=== PATIENT | male | born 2000 | race African-American/Black ===

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

== ENCOUNTER 2019-02-09 05:45 | Emergency (ER) | payer OTHER ==
[2019-02-09 06:15] VITALS: BP 127/58; PULSE 51; TEMP 97.9; BMI 23.0
--- NOTE | 2019-02-09 07:31 | PDOC ---
History of Present Illness - General Chief Complaint: Injury Stated Complaint: L HAND INJURY Time Seen by Provider: 02/09/19 07:10 History Source: Patient Exam Limitations: No Limitations - History of Present Illness Initial Comments: 18 yo m w a no sig pmh presents to the ER with a left hand injury after he closed the car door on his thumb last night. The patient states that last night around 7 pm the car door got closed on his left thumb and he has been in pain ever since. He took 600 mg of motrin and applied ice to his thumb last night with partial relief. He came into the ER today to get an X-ray to make sure nothing is broken. The patient states his hand is not in pain at rest and his sensation is normal. PCP: Vladislav Downing PSH: None reported Social Hx: Smokes marijuana, drinks recreationally, denies cigarette or illicit drug usage Allergies: NKA, NKDA Past History - Past Medical History Allergies/Adverse Reactions: Allergies Allergy/AdvReac Type Severity Reaction Status Date / Time No Known Allergies Allergy Verified 02/09/19 06:49 Home Medications: Ambulatory Orders NK [No Known Home Medication] 10/06/15 - Immunization History Immunization Up to Date: Yes - Suicide/Smoking/Psychosocial Hx Smoking History: Never smoked Have you smoked in the past 12 months: No Number of Cigarettes Smoked Daily: 0 Cigars Per Day: 1 Information on smoking cessation initiated: No 'Breaking Loose' booklet given: 08/23/16 Hx Alcohol Use: No Drug/Substance Use Hx: No Substance Use Type: Marijuana Review of Systems - Review of Systems Able to Perform ROS?: Yes Comments:: CONSTITUTIONAL: Absent: fever, no chills, no fatigue EYES: Absent: visual changes ENT: Absent: ear pain, no sore throat CARDIOVASCULAR: Absent: chest pain, no palpitations RESPIRATORY: Absent: cough, no SOB GI: Absent: abdominal pain, no nausea, no vomiting, no constipation, no diarrhea GENITOURINARY: Absent: dysuria, no frequency, no hematuria MUSKULOSKELETAL: Present: Arthralgia Absent: back pain, no myalgia SKIN: Absent: rash NEURO: Absent: headache *Physical Exam - Vital Signs Last Vital Signs Temp Pulse Resp BP Pulse Ox 97.9 F 51 L 16 127/58 L 100 02/09/19 06:05 02/09/19 06:05 02/09/19 06:05 02/09/19 06:05 02/09/19 06:05 - Physical Exam Comments: LEFT HAND: The 1st digit has a small subungal hematoma covering around 20% of the nail. 2+ ulnar and radial pulses. Full palmar and dorsal sensation in every digit. There is limited ROM at the 1st DIP joint and mildly reduced ROM at the 1st PIP joint. No snuff box TTP. No erythema or swelling of the hand. GENERAL: Well-appearing, well-nourished. No apparent distress. HEENT: Normocephalic, atraumatic. PERRL, EOM intact. CARDIOVASCULAR: Normal S1, S2. Regular rate and rhythm. PULMONARY: No evidence of respiratory distress. Lungs clear to auscultation bilaterally. No wheezing, rales or rhonchi. ABDOMEN: Soft, non-distended, non-tender. EXTREMITIES: Normal ROM in all four extremities. No gross deformities. SKIN: Warm, dry. No rash NEUROLOGICAL: No focal neurological deficits. Procedures - Splinting Splint Location: Left: Finger Pre-Proc Neuro Vasc Exam: normal Pre-Made Type: metal Splint Type: Yes: Thumb Spica Post-Proc Neuro Vasc Exam: normal Librado Bandage: no Sling: No Complications: No Post splint xray: No Good repositioning: Yes - Nail Trephination Nail Trephination Location: left thumb Method of Drainage: nail cauterized Sterile Dressing Applied: Yes Finger Splint: Yes ED Treatment Course - RADIOLOGY Radiograph Interpretation: Hand XR: Left hand: Some injury. Pain. 3 views of the left hand have been submitted. There is no sign of fracture or subluxation and no sign of blastic or lytic changes. Swelling, foreign body or soft tissue air is not seen. If symptoms persist, further imaging and orthopedic consultation may be of help. Impression no acute left hand pathology. Finger XR: Left thumb: Injury 3 views of the left thumb have been submitted. There is no sign of fracture or subluxation and no sign of blastic or lytic changes. Swelling, foreign body or soft tissue air is not seen. If symptoms persist, further imaging and orthopedic consultation may be of help. Medical Decision Making - Medical Decision Making 18 yo m w a no sig pmh presents to the ER with a left hand injury after he closed the car door on his thumb last night. The patient states that last night around 7 pm the car door got closed on his left thumb and he has been in pain ever since. He took 600 mg of motrin and applied ice to his thumb last night with partial relief. He came into the ER today to get an X-ray to make sure nothing is broken. The patient states his hand is not in pain at rest and his sensation is normal. Vital Signs Temp Pulse Resp BP Pulse Ox 97.9 F 51 L 16 127/58 L 100 02/09/19 06:05 02/09/19 06:05 02/09/19 06:05 02/09/19 06:05 02/09/19 06:05 DDx IBNLT: Thumb injury - bone fx, sprain, dislocation, wrist injury Plan: X-ray, ice, analgesia, Nail trephination with electrocautery, thumb spica splint, ortho FU. Hand/Finger x-rays: No acute fx or subluxation - Nail cauterized with electrocauterizer - Thumb Spica splint applied Will DC Patient with Ortho Fu and return precautions. *DC/Admit/Observation/Transfer Diagnosis at time of Disposition: Thumb pain - Discharge Dispostion Disposition: HOME Condition at time of disposition: Improved Decision to Admit order: No - Referrals Referrals: Vladislav Downing MD [Primary Care Provider] - Arben Delgado DO [Staff Physician] - Lewis Hernandez DO [Staff Physician] - - Patient Instructions Printed Discharge Instructions: Finger Sprain Additional Instructions: You came into the ER after injuring your thumb. We did an x-ray which showed you have no broken bones. We cauterized your nail to drain the blood underneath your nail. We also put your finger in a splint. We are giving you the numbers for two orthopedists - Tanya Delgado and Mary - please make sure to call them up and schedule an appointment for a follow up. Come back to the ER immediately if your pain worsens, you cant feel your thumb, you get a fever, or have any other new or worsening concerns. Thank you for coming to the [facility] ER. We hope you feel better soon! Print Language: MOROCCAN - Post Discharge Activity
[2019-02-09] MEDS ORDERED: IBUPROFEN 400 MG TABLET (FP) PO ONE ×2 (07:37→08:16)
--- NOTE | 2019-02-09 08:25 | PDOC ---
Documentation entered by Shaka Barrientos SCRIBE, acting as scribe for Julien Alcaraz MD. Julien Alcaraz MD: This documentation has been prepared by the Floyd preston Joel, SCRIBE, under my direction and personally reviewed by me in its entirety. I confirm that the documentation accurately reflects all work, treatment, procedures, and medical decision making performed by me. Attending Attestation - Resident Resident Name: Lee Hassan - ED Attending Attestation I have performed the following: I have examined & evaluated the patient, The case was reviewed & discussed with the resident, I agree w/resident's findings & plan, Exceptions are as noted - HPI HPI: 02/09/19 07:47 The patient is a 18 year old male with no significant PMH who presents to the emergency department with left thumb pain beginning about 12 hours ago. The patient reports accidentally closing the car door on his left thumb at about 7pm last night. He reports taking Motrin and applying ice to some relief. Denies any other injuries. Allergies: NKA Social history: Marijuana use. Social alcohol use. No reported cigarette use. PCP: Dr. Vladislav Downing - Physicial Exam PE: 02/09/19 08:26 GENERAL: Awake, alert, and fully oriented, in no acute distress. HEAD: No signs of trauma EYES: PERRLA, EOMI, sclera anicteric, conjunctiva clear ENT: Auricles normal inspection, hearing grossly normal, nares patent, oropharynx clear without exudates. Moist mucosa NECK: Nontender, no stepoffs, Normal ROM, supple, no lymphadenopathy, JVD, or masses LUNGS: Breath sounds equal, clear to auscultation bilaterally. No wheezes, and no crackles HEART: Regular rate and rhythm, normal S1 and S2, no murmurs, rubs or gallops ABDOMEN: Soft, nontender, normoactive bowel sounds. No guarding, no rebound. No masses EXTREMITIES: + L thumb with subungual hematoma, no bony deformity, full ROM NEUROLOGICAL: Cranial nerves II through XII intact. 5/5 strength and sensation in all extremities, Normal speech, normal gait, normal cerebellar function SKIN: Warm, Dry, normal turgor, no rashes or lesions noted. - Medical Decision Making 02/09/19 08:27 18 M with L thumb injury after slamming it in a car door. - XR negative for fx/dislocation Subungual hematoma trephinated using electric cautery Pt placed in thumb splint, given ortho f/u Pt is well appearing, with normal vitals. Clinically stable for DC at this time. I discussed the physical exam findings, ancillary test results and final diagnoses with the patient. I answered all of the patient's questions. The patient was satisfied with the care received and felt comfortable with the discharge plan and treatment plan. The patient agrees to follow up with the primary care physician within 24-72 hours.
== END 2019-02-09 08:26 | disposition home or self-care (01) ==
LOC: JER 05:45
PROC: 2W3HX1Z Immobilization of Left Thumb using Splint (ICD-10-PCS; principal; 2019-02-09)
DX: M79.645 Pain in left finger(s) (principal); V48.4XXA Person boarding or alighting a car injured in noncollision transport accident, initial encounter; Y92.488 Other paved roadways as the place of occurrence of the external cause; Y93.89 Activity, other specified; Y99.8 Other external cause status
CPT/HCPCS: 29130; 73130-TC-LT-FY; 73140-TC-LT-FY; 99281-25

== ENCOUNTER 2019-02-18 00:19 | Emergency (ER) | payer OTHER ==
[2019-02-18 00:48] VITALS: BP 108/62; PULSE 70; TEMP 98.6; BMI 21.4
[2019-02-18 01:22] LABS: URINE APPEARANCE CLEAR; URINE BILIRUBIN NEGATIVE (NEGATIVE); URINE COLOR YELLOW; URINE GLUCOSE (UA) NEGATIVE (NEGATIVE); URINE KETONE NEGATIVE (NEGATIVE); URINE LEUK ESTERASE NEGATIVE (NEGATIVE); URINE NITRITE NEGATIVE (NEGATIVE); URINE PROTEIN NEGATIVE (NEGATIVE)
--- NOTE | 2019-02-18 02:10 | PDOC ---
History of Present Illness - General Chief Complaint: Urinary Problem Stated Complaint: CHECK UP Time Seen by Provider: 02/18/19 01:45 History Source: Patient Exam Limitations: No Limitations - History of Present Illness Initial Comments: 02/18/19 01:58 18yo M with no significant PMH presenting to ED with complaints of urinary frequency for the past 2 days. Denies discharge, testicular pain, erythema, swelling, dysuria, hematuria, flank pain, fevers, chills, history of stds. He has a new partner and is unsure if they have a history of stds. PMD: jesse Downing PMH: none PSH: none Allergies: nkda Social: marijuana use Past History - Past Medical History Allergies/Adverse Reactions: Allergies Allergy/AdvReac Type Severity Reaction Status Date / Time No Known Allergies Allergy Verified 02/18/19 00:41 Home Medications: Ambulatory Orders NK [No Known Home Medication] 10/06/15 COPD: No - Immunization History Immunization Up to Date: Yes - Suicide/Smoking/Psychosocial Hx Smoking History: Never smoked Have you smoked in the past 12 months: No Number of Cigarettes Smoked Daily: 0 Cigars Per Day: 1 Information on smoking cessation initiated: No 'Breaking Loose' booklet given: 08/23/16 Hx Alcohol Use: No Drug/Substance Use Hx: Yes (marijuana) Substance Use Type: Marijuana Review of Systems - Review of Systems Constitutional: No: Symptoms Reported HEENTM: No: Symptoms Reported Respiratory: No: Symptoms reported Cardiac (ROS): No: Symptoms Reported ABD/GI: No: Symptoms Reported : Yes: See HPI, Frequency. No: Burning, Dysuria, Flank Pain, Hematuria, Incontinence, Pain, Testicular Swelling, Testicular Pain Musculoskeletal: No: Symptoms Reported Integumentary: No: Symptoms Reported Neurological: No: Symptoms reported *Physical Exam - Vital Signs Last Vital Signs Temp Pulse Resp BP Pulse Ox 98.6 F 70 18 108/62 99 02/18/19 00:41 02/18/19 00:41 02/18/19 00:41 02/18/19 00:41 02/18/19 00:41 - Physical Exam General Appearance: Yes: Appropriately Dressed, Thin. No: Apparent Distress HEENT: positive: EOMI, CIRO Respiratory/Chest: positive: Lungs Clear Cardiovascular: positive: Regular Rhythm, Regular Rate Gastrointestinal/Abdominal: positive: Normal Bowel Sounds, Soft Male Genitalia: positive: normal genitalia. negative: discharge, testicular tenderness, testicular mass, epididymus tender Musculoskeletal: negative: CVA Tenderness Integumentary: positive: Normal Color, Dry, Warm Neurologic: positive: marketing specialist II-XII NML intact, Fully Oriented, Alert, Normal Mood/ Affect, Normal Response, Motor Strength 5/5 ED Treatment Course - ADDITIONAL ORDERS Additional order review: Laboratory Results 02/18/19 00:45 Urine Color Yellow Urine Appearance Clear Urine pH 6.0 Ur Specific [place] 1.031 Urine Protein Negative Urine Glucose (UA) Negative Urine Ketones Negative Urine Blood Negative Urine Nitrite Negative Urine Bilirubin Negative Urine Urobilinogen 1.0 Ur Leukocyte Esterase Negative Medical Decision Making - Medical Decision Making 02/18/19 02:12 18yo M with no significant PMH presenting to ED with complaints of urinary frequency for the past 2 days. Denies discharge, testicular pain, erythema, swelling, dysuria, hematuria, flank pain, fevers, chills, history of stds. He has a new partner and is unsure if they have a history of stds. Vitals: wnl PE; ddx includes but not limited to uti, pyelonephritis, gc, dm, electrolyte/ metabolic abnormality UA negative for infection Will send GC BGM. If normal, pt can be dc home BGM 80. Pt safe for dc home. Will defer covering for GC, pt only has frequency. Pt will get call back with positive results. Pt otherwise stable, safe for dc home. given return precautions. *DC/Admit/Observation/Transfer Diagnosis at time of Disposition: Urinary frequency - Discharge Dispostion Disposition: HOME Condition at time of disposition: Good Decision to Admit order: No - Referrals Referrals: Vladislav Downing MD [Primary Care Provider] - - Patient Instructions Additional Instructions: You were seen in the emergency room today for urinary frequency. You do not have a urinary tract infection. The GC test will come back in a few days. You will get a call if the results are positive. Keep yourself well hydrated. Please make an appointment with your primary care doctor in the next few days to go over this current ED visit. Come back to the emergency room if symptoms worsen, you have blood in the urine , you have discharge, you develop testicular pain or if any new concerning symptom develops. Thank you - Post Discharge Activity
--- NOTE | 2019-02-18 02:21 | PDOC ---
Attending Attestation - Resident Resident Name: Ruchi Nj - ED Attending Attestation I have performed the following: I have examined & evaluated the patient, The case was reviewed & discussed with the resident, I agree w/resident's findings & plan, Exceptions are as noted - HPI HPI: 02/18/19 02:54 18M denies PMH here with urinary frequency x2 days. No other complaints. Endorses new partner - Medical Decision Making 02/18/19 04:04 Dysuria in context of new sexual partner eval uti, sti f/u ua send cx
== END 2019-02-18 02:42 | disposition home or self-care (01) ==
LOC: JER 00:19
DX: R35.0 Frequency of micturition (principal)
CPT/HCPCS: 36415; 81003; 82962; 87086; 87491; 87591; 99281-25

== ENCOUNTER 2020-04-01 11:24 | Emergency (ER) | payer OTHER ==
[2020-04-01 11:29] VITALS: BP 139/67; PULSE 99; TEMP 98.7; BMI 20.7
[2020-04-01] MEDS ORDERED: DEXAMETHASONE LIQUID 0.5 MG/5 ML PO ONE (11:56)
[2020-04-01] MEDS ORDERED: DEXAMETHASONE SOD PHOSPHATE 10 MG/1 ML VIAL ONE (12:08)
--- NOTE | 2020-04-01 12:14 | PDOC ---
History of Present Illness - General Chief Complaint: Sore Throat Stated Complaint: SORE THROAT Time Seen by Provider: 04/01/20 11:33 History Source: Patient Exam Limitations: No Limitations - History of Present Illness Initial Comments: 04/01/20 12:25 20-year-old male presents the ED with difficulty swallowing, chills, sore throat, and a bump to the left side of his neck. Patient states symptoms began last night but worsened in severity today. Patient states was at a few parties earlier this week and unsure if he contracted something but denies headache, cough, difficulty breathing, smoking history but does smoke marijuana. Patient states decreased oral intake but continues with fluids. Patient mentioned in triage low back pain but states he has had for over a year and is not concerned with being evaluated for this at this time. Timing/Duration: reports: yesterday Severity: reports: moderate Possible Cause: Yes: no prior episodes Associated Symptoms: reports: fever/chills, sore throat Past History - Travel History Traveled outside of the country in the last 30 days: No Close contact w/someone who was outside of country & ill: No - Medical History Allergies/Adverse Reactions: Allergies Allergy/AdvReac Type Severity Reaction Status Date / Time No Known Allergies Allergy Verified 04/01/20 11:29 Home Medications: Ambulatory Orders Amoxicillin - [Amoxicillin 500mg Capsule -] 500 mg PO BID #20 capsule 04/01/20 COPD: No - Immunization History Immunization Up to Date: Yes - Psycho-Social/Smoking History Patient Lives Alone: No Lives with/in: parents Smoking History: Current every day smoker Have you smoked in the past 12 months: No Number of Cigarettes Smoked Daily: 0 Cigars Per Day: 1 Information on smoking cessation initiated: No 'Breaking Loose' booklet given: 08/23/16 - Substance Abuse Hx (Audit-C & DAST Scrn) How often the patient has a drink containing alcohol: Never Score: In Men: 4 or > Positive; In Women: 3 or > Positive: 0 Screen Result (Pos requires Nsg. Audit-10AR): Negative Review of Systems - Review of Systems Able to Perform ROS?: Yes Constitutional: Yes: Chills HEENTM: Yes: Throat Pain, Difficulty Swallowing Respiratory: No: Symptoms reported Cardiac (ROS): No: Symptoms Reported ABD/GI: No: Symptoms Reported : No: Symptoms Reported Musculoskeletal: No: Symptoms Reported Integumentary: Yes: Lumps Neurological: No: Symptoms reported Endocrine: No: Symptoms Reported *Physical Exam - Vital Signs Last Vital Signs Temp Pulse Resp BP Pulse Ox 98.7 F 99 H 18 139/67 99 04/01/20 11:26 04/01/20 11:26 04/01/20 11:26 04/01/20 11:04/01/20 11:26 - Physical Exam General Appearance: Yes: Nourished, Appropriately Dressed. No: Apparent D istress HEENT: positive: Tonsillar Exudate (4+ tonsils bilateral. Uvula midline ), Tonsillar Erythema. negative: Pale Conjunctivae Neck: positive: Supple, Lymphadenopathy (L) (Upper cervical) Respiratory/Chest: positive: Lungs Clear, Normal Breath Sounds. negative: Respiratory Distress, Accessory Muscle Use Gastrointestinal/Abdominal: positive: Soft. negative: Tenderness Extremity: positive: Normal Inspection Integumentary: positive: Normal Color, Warm, Moist Neurologic: positive: Motor Strength 5/5 (ambulatory) Medical Decision Making - Medical Decision Making 04/01/20 12:31 .Chief complaint: Patient with sore throat and bump to the left side of her neck. Patient states chills . Patient denies sick contacts but states went to a few parties this week Exam: Patient with exudative erythematous 4+ tonsils bilaterally voice slightly muffled noted prominent upper left cervical adenopathy Plan: Decadron, Motrin and rapid strep ordered Discharge - Discharge Information Problems reviewed: Yes Clinical Impression/Diagnosis: Tonsillitis with exudate Condition: Good Disposition: HOME - Additional Discharge Information Prescriptions: Amoxicillin - [Amoxicillin 500mg Capsule -] 500 mg PO BID #20 capsule - Follow up/Referral - Patient Discharge Instructions Patient Printed Discharge Instructions: DI for Pharyngitis/Tonsillopharyngitis -- Adult Additional Instructions: take antibiotics starting today and finish in entirety. Drink plenty of fluids eat soft foods may take Motrin 600 mg every 8 hours for discomfort. If your symptoms worsen please return to the ED immediately otherwise follow-up with your primary care physician. - Post Discharge Activity
[2020-04-01] MEDS ORDERED: IBUPROFEN 100 MG/5 ML UNIT DOSE CUPS PO ONE (12:24)
[2020-04-01] MEDS ORDERED: IBUPROFEN 100 MG/5 ML UNIT DOSE CUPS ONE (12:25)
== END 2020-04-01 13:09 | disposition home or self-care (01) ==
LOC: JERFT 11:24
DX: J03.90 Acute tonsillitis, unspecified (principal)
CPT/HCPCS: 87070; 87077; 87880; 99283-25

== ENCOUNTER 2020-07-27 06:50 | Emergency (ER) | payer OTHER ==
[2020-07-27 07:20] VITALS: TEMP 98.1; BMI 23.6
[2020-07-27] MEDS ORDERED: AZITHROMYCIN 500 MG TABLET PO ONE (07:47)
[2020-07-27] MEDS ORDERED: cefTRIAXone SODIUM 1 GM VIAL ONE (08:03)
[2020-07-27] MEDS ORDERED: AZITHROMYCIN 250 MG TABLET ONE (08:03)
[2020-07-27] MEDS ORDERED: IBUPROFEN 600 MG TABLET (FP) PO ONE ×2 (08:15)
[2020-07-27 08:27] LABS: EPI CELLS 36 /uL (0-25.1); HYALINE CASTS 16 /uL (0-3.1); URINE APPEARANCE CLEAR; URINE BACTERIA 63 /uL (0-1359); URINE BILIRUBIN NEGATIVE (NEGATIVE); URINE COLOR YELLOW; URINE GLUCOSE (UA) NEGATIVE (NEGATIVE); URINE KETONE TRACE (NEGATIVE); URINE LEUK ESTERASE 2+ (NEGATIVE); URINE NITRITE NEGATIVE (NEGATIVE); URINE PROTEIN NEGATIVE (NEGATIVE); URINE RBC 4 /uL (0-23.9); URINE WBC 299 /uL (0-25.8)
[2020-07-27 08:42] VITALS: BP 110/65; PULSE 79
== END 2020-07-27 08:42 | disposition home or self-care (01) ==
LOC: JER 06:50
DX: R30.0 Dysuria (principal); R35.0 Frequency of micturition
CPT/HCPCS: 36415; 81003; 87086; 87491; 87591; 99284-25

== ENCOUNTER 2020-07-30 10:00 | Emergency (ER) | payer OTHER ==
[2020-07-30 10:21] VITALS: BP 121/74; PULSE 69; TEMP 98.1; BMI 20.7
[2020-07-30 10:51] LABS: EPI CELLS 22 /uL (0-25.1); HYALINE CASTS 11 /uL (0-3.1); URINE APPEARANCE CLOUDY; URINE BACTERIA 40 /uL (0-1359); URINE BILIRUBIN NEGATIVE (NEGATIVE); URINE COLOR YELLOW; URINE GLUCOSE (UA) NEGATIVE (NEGATIVE); URINE KETONE NEGATIVE (NEGATIVE); URINE LEUK ESTERASE 2+ (NEGATIVE); URINE NITRITE NEGATIVE (NEGATIVE); URINE PROTEIN NEGATIVE (NEGATIVE); URINE RBC 9 /uL (0-23.9); URINE WBC 283 /uL (0-25.8)
== END 2020-07-30 11:01 | disposition home or self-care (01) ==
LOC: JER 10:00
DX: N30.00 Acute cystitis without hematuria (principal)
CPT/HCPCS: 36415; 81003; 87491; 87591; 99283-25

== ENCOUNTER 2020-10-05 00:51 | Emergency (ER) | payer OTHER ==
[2020-10-05 01:22] VITALS: BP 128/80; PULSE 63; TEMP 98.4; BMI 21.2
[2020-10-05] MEDS ORDERED: PENICILLIN G BENZATHINE 2,400,000 UNIT/4 ML PFS IM ONE (02:19)
[2020-10-05] MEDS ORDERED: DOXYCYCLINE HYCLATE 100 MG CAPSULE PO ONE ×3 (02:20→02:39)
[2020-10-05] MEDS ORDERED: cefTRIAXone SODIUM 1 GM VIAL ONE (02:38)
[2020-10-05] MEDS ORDERED: PENICILLIN G BENZATHINE 2,400,000 UNIT/4 ML PFS ONE (02:38)
== END 2020-10-05 03:12 | disposition home or self-care (01) ==
LOC: JER 00:51
DX: N48.5 Ulcer of penis (principal); Z20.2 Contact with and (suspected) exposure to infections with a predominantly sexual mode of transmission
CPT/HCPCS: 99284-25

== ENCOUNTER 2020-10-07 15:43 | Emergency (ER) | payer OTHER ==
[2020-10-07 15:49] VITALS: BP 134/66; PULSE 68; TEMP 97; BMI 21.2
[2020-10-07 20:12] LABS: HIV INTERPRETATION NEGATIVE (NEGATIVE)
== END 2020-10-07 17:05 | disposition home or self-care (01) ==
LOC: JERFT 15:43
DX: N48.5 Ulcer of penis (principal); Z20.2 Contact with and (suspected) exposure to infections with a predominantly sexual mode of transmission
CPT/HCPCS: 36415; 86694; 86780; 87389; 87491; 87529; 87591; 99283-25

== ENCOUNTER 2020-10-20 06:28 | Emergency (ER) | payer OTHER ==
[2020-10-20 06:37] VITALS: BP 124/81; PULSE 82; TEMP 98.6; BMI 24.3
== END 2020-10-20 07:45 | disposition home or self-care (01) ==
LOC: JER 06:28
DX: S30.812A Abrasion of penis, initial encounter (principal)
CPT/HCPCS: 99282-25

== ENCOUNTER 2021-08-09 14:13 | Emergency (ER) | payer OTHER ==
[2021-08-09 14:23] VITALS: TEMP 97.2
[2021-08-09 14:36] VITALS: BP 122/72; PULSE 97; BMI 46.9
[2021-08-09 17:46] LABS: HIV INTERPRETATION NEGATIVE (NEGATIVE)
[2021-08-11 07:06] LABS: SARS-CoV-2 NAA Not Detected (Not Detected)
== END 2021-08-09 19:29 | disposition home or self-care (01) ==
LOC: JER 14:13
DX: Z11.3 Encounter for screening for infections with a predominantly sexual mode of transmission (principal)
CPT/HCPCS: 36415; 86780; 86803; 87350; 87389; 87517; 99283-25; C9803; U0003; U0005

== ENCOUNTER 2021-08-13 08:58 | Emergency (ER) | payer OTHER ==
[2021-08-13 09:11] VITALS: BP 117/66; PULSE 83; TEMP 97.3
[2021-08-13] MEDS ORDERED: ACETAMINOPHEN 500 MG TABLET (FP) PO ONE (10:06)
[2021-08-13 10:28] LABS: BASO % 0.5 % (0-2.0); EOS % 1.4 % (0-4.5); HEMATOCRIT 45.2 % (35.4-49); HEMOGLOBIN 15.1 GM/dL (11.7-16.9); LYMPH % 37.4 % (8-40); MCH 28.6 pg (25.7-33.7); MCHC 33.5 g/dl (32.0-35.9); MEAN CELL VOLUME 85.5 fl (80-96); MEAN PLT VOLUME 9.5 fl (7.5-11.1); MONO % 10.8 % (3.8-10.2); NEUT % 49.9 % (42.8-82.8); PLATELET COUNT 145 10^3/uL (134-434); RBC 5.29 M/mm3 (4.00-5.60); WHITE BLOOD COUNT 3.3 K/mm3 (4.0-10.0)
[2021-08-13 10:48] LABS: CALCIUM 9.1 mg/dL (8.5-10.1)
[2021-08-13 10:49] LABS: BLOOD UREA NITROGEN 9.2 mg/dL (7-18)
[2021-08-13 10:53] LABS: BILIRUBIN,TOTAL 0.3 mg/dL (0.2-1)
[2021-08-13 11:02] LABS: URINE APPEARANCE CLEAR; URINE BILIRUBIN NEGATIVE (NEGATIVE); URINE COLOR YELLOW; URINE GLUCOSE (UA) NEGATIVE (NEGATIVE); URINE KETONE NEGATIVE (NEGATIVE); URINE LEUK ESTERASE NEGATIVE (NEGATIVE); URINE NITRITE NEGATIVE (NEGATIVE); URINE PROTEIN NEGATIVE (NEGATIVE); URINE UROBILINOGEN 0.2 mg/dL (0.2-1.0)
== END 2021-08-13 12:07 | disposition home or self-care (01) ==
LOC: JER 08:58
DX: R10.12 Left upper quadrant pain (principal)
CPT/HCPCS: 36415; 74176-TC; 80053; 81003; 83690; 85025; 87086; 87491; 87591; 99284-25

== ENCOUNTER 2021-10-20 08:14 | Inpatient (IN) | payer OTHER ==
[2021-10-20 08:33] VITALS: BMI 21.2
[2021-10-20 09:30] LABS: EPI CELLS 8 /uL (0-25.1); HYALINE CASTS 4 /uL (0-3.1); PH,URINE 5.5 (5.0-8.0); URINE APPEARANCE CLEAR; URINE BACTERIA 5 /uL (0-1359); URINE BILIRUBIN NEGATIVE (NEGATIVE); URINE COLOR YELLOW; URINE GLUCOSE (UA) NEGATIVE (NEGATIVE); URINE KETONE NEGATIVE (NEGATIVE); URINE LEUK ESTERASE NEGATIVE (NEGATIVE); URINE NITRITE NEGATIVE (NEGATIVE); URINE PROTEIN 2+ (NEGATIVE); URINE RBC 3 /uL (0-23.9); URINE UROBILINOGEN 0.2 mg/dL (0.2-1.0); URINE WBC 16 /uL (0-25.8)
[2021-10-20 10:23] LABS: BASO % 0.2 % (0-2.0); EOS % 1.2 % (0-4.5); HEMATOCRIT 44.6 % (35.4-49); HEMOGLOBIN 15.4 GM/dL (11.7-16.9); LYMPH % 13.9 % (8-40); MCH 29.4 pg (25.7-33.7); MCHC 34.6 g/dl (32.0-35.9); MEAN CELL VOLUME 84.8 fl (80-96); MEAN PLT VOLUME 9.1 fl (7.5-11.1); MONO % 5.3 % (3.8-10.2); NEUT % 79.4 % (42.8-82.8); PLATELET COUNT 164 10^3/uL (134-434); RBC 5.26 M/mm3 (4.00-5.60); WHITE BLOOD COUNT 9.6 K/mm3 (4.0-10.0)
[2021-10-20 10:42] LABS: CHLORIDE 106 mmol/L (98-107); SODIUM 139 mmol/L (136-145)
[2021-10-20 10:44] LABS: CALCIUM 9.6 mg/dL (8.5-10.1)
[2021-10-20 10:45] LABS: ALBUMIN 4.3 g/dl (3.4-5.0); ANION GAP 4 MMOL/L (8-16); CO2 30 mmol/L (21-32); GLUCOSE,RANDOM 93 mg/dL (74-106)
[2021-10-20 10:48] LABS: SGPT/ALT 81 U/L (13-61)
[2021-10-20 10:50] LABS: BILIRUBIN,TOTAL 0.4 mg/dL (0.2-1); TOT PROT 7.7 g/dl (6.4-8.2)
[2021-10-20 10:51] LABS: ALK PHOS 77 U/L (45-117)
[2021-10-20 11:02] LABS: SGOT/AST 1340 U/L (15-37)
[2021-10-20 11:52] LABS: CALCIUM 9.3 mg/dL (8.5-10.1)
[2021-10-20 11:53] LABS: ALBUMIN 4.2 g/dl (3.4-5.0); BLOOD UREA NITROGEN 8.1 mg/dL (7-18)
[2021-10-20 11:56] LABS: CREATININE 0.8 mg/dL (0.55-1.3)
[2021-10-20 11:57] LABS: BILIRUBIN,TOTAL 0.6 mg/dL (0.2-1); TOT PROT 7.6 g/dl (6.4-8.2)
[2021-10-20] MEDS ORDERED: SODIUM CHLORIDE 0.9% 500 ML INFUS.BAG IV ONE (12:38)
[2021-10-20 13:29] LABS: METHADONE, UR NEGATIVE (NEGATIVE); PHENCYCLIDINE,URINE NEGATIVE (NEGATIVE); URINE AMPHETAMINES NEGATIVE (NEGATIVE); URINE BENZODIAZEPINES NEGATIVE (NEGATIVE)
[2021-10-20 13:30] LABS: OPIATES, URI NEGATIVE (NEGATIVE); URINE BARBITURATES NEGATIVE (NEGATIVE)
[2021-10-20 13:43] LABS: COCAINE, UR NEGATIVE (NEGATIVE)
[2021-10-20] MEDS: SODIUM CHLORIDE 1,000 ML IV SCH ×2 (14:34→20:19)
[2021-10-21] MEDS: SODIUM CHLORIDE 1,000 ML IV SCH ×3 (02:18→14:49)
[2021-10-21 08:09] LABS: BASO % 0.2 % (0-2.0); HEMATOCRIT 38.7 % (35.4-49); HEMOGLOBIN 13.7 GM/dL (11.7-16.9); LYMPH % 16.6 % (8-40); MCH 29.7 pg (25.7-33.7); MCHC 35.3 g/dl (32.0-35.9); MEAN CELL VOLUME 84.3 fl (80-96); MEAN PLT VOLUME 9.6 fl (7.5-11.1); MONO % 5.9 % (3.8-10.2); NEUT % 75.3 % (42.8-82.8); PLATELET COUNT 143 10^3/uL (134-434); RBC 4.59 M/mm3 (4.00-5.60); RDW 14.2 % (11.9-15.9); WHITE BLOOD COUNT 8.8 K/mm3 (4.0-10.0)
[2021-10-21 08:20] LABS: ALBUMIN 3.5 g/dl (3.4-5.0); CALCIUM 8.5 mg/dL (8.5-10.1)
[2021-10-21 08:21] LABS: BLOOD UREA NITROGEN 5.7 mg/dL (7-18)
[2021-10-21 08:24] LABS: CREATININE 0.9 mg/dL (0.55-1.3)
[2021-10-21 08:25] LABS: BILIRUBIN,TOTAL 0.5 mg/dL (0.2-1); TOT PROT 6.4 g/dl (6.4-8.2)
[2021-10-22] MEDS: SODIUM CHLORIDE 1,000 ML IV SCH ×4 (00:12→21:11)
[2021-10-22 10:23] LABS: CHLORIDE 107 mmol/L (98-107); SODIUM 139 mmol/L (136-145)
[2021-10-22 10:36] LABS: BLOOD UREA NITROGEN 5.8 mg/dL (7-18)
[2021-10-22 10:38] LABS: BILIRUBIN,TOTAL 0.9 mg/dL (0.2-1)
[2021-10-22 10:39] LABS: ALK PHOS 73 U/L (45-117); CREATININE 0.9 mg/dL (0.55-1.3)
[2021-10-22 10:44] LABS: ALBUMIN 3.9 g/dl (3.4-5.0); ANION GAP 7 MMOL/L (8-16); CALCIUM 9.4 mg/dL (8.5-10.1); CO2 25 mmol/L (21-32); GLUCOSE,RANDOM 85 mg/dL (74-106)
[2021-10-22 10:45] LABS: SGPT/ALT 123 U/L (13-61)
[2021-10-22 11:07] LABS: SGOT/AST 1560 U/L (15-37)
[2021-10-22 17:15] LABS: EPI CELLS 3 /uL (0-25.1); HYALINE CASTS 0 /uL (0-3.1); URINE APPEARANCE CLEAR; URINE BACTERIA 0 /uL (0-1359); URINE BILIRUBIN NEGATIVE (NEGATIVE); URINE COLOR YELLOW; URINE GLUCOSE (UA) NEGATIVE (NEGATIVE); URINE KETONE NEGATIVE (NEGATIVE); URINE LEUK ESTERASE NEGATIVE (NEGATIVE); URINE NITRITE NEGATIVE (NEGATIVE); URINE PROTEIN NEGATIVE (NEGATIVE); URINE RBC 0 /uL (0-23.9); URINE UROBILINOGEN 0.2 mg/dL (0.2-1.0); URINE WBC 2 /uL (0-25.8)
[2021-10-23 09:05] LABS: CHLORIDE 109 mmol/L (98-107); SODIUM 142 mmol/L (136-145)
[2021-10-23 09:12] LABS: CALCIUM 8.8 mg/dL (8.5-10.1)
[2021-10-23 09:13] LABS: ALBUMIN 3.5 g/dl (3.4-5.0); ANION GAP 7 MMOL/L (8-16); CO2 26 mmol/L (21-32); GLUCOSE,RANDOM 78 mg/dL (74-106)
[2021-10-23 09:14] LABS: BLOOD UREA NITROGEN 6.9 mg/dL (7-18)
[2021-10-23 09:16] LABS: CREATININE 0.8 mg/dL (0.55-1.3); SGPT/ALT 115 U/L (13-61)
[2021-10-23 09:18] LABS: BILIRUBIN,TOTAL 0.4 mg/dL (0.2-1); TOT PROT 6.9 g/dl (6.4-8.2)
[2021-10-23 09:19] LABS: ALK PHOS 69 U/L (45-117)
[2021-10-23 09:30] LABS: SGOT/AST 1126 U/L (15-37)
[2021-10-23] MEDS: SODIUM CHLORIDE 1,000 ML IV SCH ×3 (15:13→23:25)
[2021-10-24] MEDS: SODIUM CHLORIDE 1,000 ML IV SCH ×4 (03:25→18:29)
[2021-10-24 07:59] LABS: CHLORIDE 111 mmol/L (98-107); SODIUM 142 mmol/L (136-145)
[2021-10-24 08:01] LABS: ANION GAP 6 MMOL/L (8-16); BLOOD UREA NITROGEN 7.2 mg/dL (7-18); CALCIUM 8.4 mg/dL (8.5-10.1); CO2 26 mmol/L (21-32); GLUCOSE,RANDOM 78 mg/dL (74-106)
[2021-10-24 08:02] LABS: ALBUMIN 3.4 g/dl (3.4-5.0); MAGNESIUM 1.8 mg/dL (1.8-2.4)
[2021-10-24 08:04] LABS: PHOSPHOROUS 3.3 mg/dL (2.5-4.9); SGOT/AST 653 U/L (15-37)
[2021-10-24 08:05] LABS: CREATININE 0.8 mg/dL (0.55-1.3); SGPT/ALT 95 U/L (13-61)
[2021-10-24 08:06] LABS: BILIRUBIN,TOTAL 0.3 mg/dL (0.2-1); TOT PROT 6.3 g/dl (6.4-8.2)
[2021-10-24 08:07] LABS: ALK PHOS 65 U/L (45-117)
[2021-10-24 14:27] LABS: EPI CELLS 3 /uL (0-25.1); HYALINE CASTS 1 /uL (0-3.1); PH,URINE 7.5 (5.0-8.0); URINE APPEARANCE CLEAR; URINE BACTERIA 3 /uL (0-1359); URINE BILIRUBIN NEGATIVE (NEGATIVE); URINE COLOR YELLOW; URINE GLUCOSE (UA) NEGATIVE (NEGATIVE); URINE KETONE NEGATIVE (NEGATIVE); URINE LEUK ESTERASE NEGATIVE (NEGATIVE); URINE NITRITE NEGATIVE (NEGATIVE); URINE PROTEIN NEGATIVE (NEGATIVE); URINE RBC 1 /uL (0-23.9); URINE UROBILINOGEN 0.2 mg/dL (0.2-1.0); URINE WBC 0 /uL (0-25.8)
[2021-10-24 15:44] VITALS: BP 153/84; PULSE 59; TEMP 97.9
== END 2021-10-24 20:53 | disposition left against medical advice (07) | DRG 351 ==
LOC: JER 08:14 → JERBED 14:05 → J8W 15:18
DX: M62.82 Rhabdomyolysis (principal); F12.20 Cannabis dependence, uncomplicated; R80.9 Proteinuria, unspecified; R31.29 Other microscopic hematuria
CPT/HCPCS: 36415; 74176-TC; 76775-TC; 76856-TC; 80053; 80307; 81003; 82550; 82553; 83735; 83874; 84100; 84484; 85025; 85651; 86140; 87086; 87491; 87591; 93005; 93010; 99285-25; C9803; U0003; U0005

== ENCOUNTER 2022-06-17 04:41 | Emergency (ER) | payer OTHER ==
[2022-06-17 05:02] VITALS: BP 121/71; PULSE 62; RESP 17; TEMP 98.7; BMI 21.2
[2022-06-17] MEDS ORDERED: IBUPROFEN 600 MG TABLET (FP) PO ONE ×2 (07:38→07:47)
[2022-06-17 08:13] LABS: BASO % 0.5 % (0-2.0); HEMATOCRIT 42.6 % (35.4-49); HEMOGLOBIN 14.6 GM/dL (11.7-16.9); LYMPH % 24.4 % (8-40); MCH 28.7 pg (25.7-33.7); MCHC 34.3 g/dl (32.0-35.9); MEAN CELL VOLUME 83.8 fl (80-96); MEAN PLT VOLUME 9.1 fl (7.5-11.1); MONO % 6.2 % (3.8-10.2); NEUT % 66.9 % (42.8-82.8); PLATELET COUNT 155 10^3/uL (134-434); RBC 5.08 M/mm3 (4.00-5.60); RDW 14.5 % (11.9-15.9)
[2022-06-17 08:21] LABS: ALBUMIN 4.2 g/dl (3.4-5.0); BLOOD UREA NITROGEN 11.6 mg/dL (7-18)
[2022-06-17 08:26] LABS: TOT PROT 7.5 g/dl (6.4-8.2)
[2022-06-17 08:27] LABS: BILIRUBIN,TOTAL 0.3 mg/dL (0.2-1)
[2022-06-17 08:33] LABS: CREATININE 0.9 mg/dL (0.55-1.3)
== END 2022-06-17 09:00 | disposition home or self-care (01) ==
LOC: JER 04:41
DX: S39.012A Strain of muscle, fascia and tendon of lower back, initial encounter (principal); R07.89 Other chest pain; Y99.9 Unspecified external cause status
CPT/HCPCS: 0241U-QW; 36415; 71046-TC-FY; 80053; 84484; 85025; 93005; 93010; 99285-25